=== PATIENT | male | born 1975 | race Two or more races ===

== ENCOUNTER 2025-06-19 10:52 | Emergency (ER) | payer SELFPAY ==
[~2025-06-19] VITALS: Ht 157.5 cm; Wt 77.5 kg
[2025-06-19 11:02] VITALS: TEMP 97.8
--- NOTE | 2025-06-19 11:58 | Physician Documentation ---
History of Present Illness ~ Chief Complaint: Medical Clearance Stated Complaint: MED CLEARANCE Time Seen by MD: 11:05 HPI Patient is seen today brought in by law enforcement with complaints of a dog bite to his right bicep and upper arm. They state this happened just prior to arrival. Patient has no other concern or complaint at this time. Tetanus Within 5 Years: No Medication Reconciliation Allergies: Coded Allergies: No Known Allergies (Unverified , 06/19/25) Review of Systems Constitutional: Denies: chills, fever, weakness Eyes: Denies: pain, blurred vision ENT: Denies: ear pain, nose pain, throat pain, mouth pain Respiratory: Denies: cough, shortness of breath Cardiovascular: Denies: chest pain, palpitations Gastrointestinal: Denies: abdominal pain, nausea, vomiting Genitourinary: Denies: burning, dysuria Male Genitalia: Denies: penile discharge, testicular pain Neurological: Denies: headache, dizziness Musculoskeletal: Denies: pain, swelling Integumentary: Denies: rash, lesions Allergic/Immunologic: Denies: hives, itching Hematologic/Lymphatic: Denies: no symptoms reported Psychiatric: Denies: depression, anxiety Physical Exam Vital Signs: Temperature: 97.8, Source: Temporal, Heart Rate: 121, Respiratory Rate: 18, BP: 142/100, Pulse Oximetry: 99, Weight: 77.500 Physical Exam General: Awake and Alert, no acute distress. HEENT: Conjunctiva pink, Sclera clear, Mucus Membranes moist. Neck: Supple without masses and tenderness. Resp: Unlabored. Lungs clear to auscultation bilaterally. Heart: Regular Rate and rhythm, normal S1 and S2 without murmur, rub or gallop. Abdomen: Soft and non tender no organomegaly Extremities: No cyanosis,clubbing or edema. Skin: Patient on exam has bruising of the right biceps and superficial abrasions with one small puncture wound measuring approximately 1 cm in length. The puncture wound is actively bleeding. Procedures Laceration/Wound Repair Laceration : Procedure Note Procedure note: 15 cc of 1% lidocaine with epinephrine was used to achieve local anesthesia of the 1 cm laceration of the right upper arm. Patient tolerated well. Wound was irrigated with copious amounts of normal saline and iodine. One staple was used to achieve closure loosely of the 1 cm laceration. Progress Results/Orders Results/Orders Completed Orders - SARITA LEA PAC Lidocaine 1% W/Epi 1:100,000 (Xylocaine (06/19/25 11:06) Medications Received in ER Medications (Trade) Dose Ordered Sig/Ace Route PRN Reason Start Time Stop Time Status Last Admin Dose Admin (Xylocaine 1%-EPI 1:100,000) 20 ml ONCE STAT SQ 06/19/25 11:06 06/19/25 11:08 DC 06/19/25 12:06 20 ML Vital Signs 06/19/25 06/19/25 11:02 12:07 Temp 97.8 Pulse 121 112 Resp 18 20 B/P (MAP) 142/100 144/100 (115) Pulse Ox 99 99 O2 Flow Rate 0 Medical Decision Making Findings Patient is seen today brought in by law enforcement with complaints of a dog bite to his right bicep and upper arm. They state this happened just prior to arrival. Patient has no other concern or complaint at this time. Patient did have laceration cleaned and irrigated and one staple put in place for loose closure. Patient will be started on Augmentin prophylactically 875/125 mg one tab twice a day for seven days. Patient will need staple removed in 7-10 days. Patient will return to ED with any worsening, concerning or changing symptoms. Departure Disposition: 01 HOME / SELF CARE / HOMELESS Impression: Primary Impression: Dog bite Qualified Codes: W54.0XXA - Bitten by dog, initial encounter Additional Impressions: Abrasion Superficial bruising Laceration Condition: Stable Discharge Instructions: Laceration Care, Adult, [id number] Additional Instructions: Patient did have laceration cleaned and irrigated and one staple put in place for loose closure. Patient will be started on Augmentin prophylactically 875/125 mg one tab twice a day for seven days. Patient was given one dose of Augmentin in the ED today and will need another dose tonight before bedtime. Patient will need staple removed in 7-10 days. Patient will return to ED with any worsening, concerning or changing symptoms. Referrals: NO PRIMARY CARE PROVIDER (PCP) Signature Scribe Signature: No scribe Attestation: No scribe SARITA LEA PAC Jun 19, 2025 11:58
[2025-06-19] MEDS: LIDOcaine 1% W/epiNEPHrine 1:100,000 20ml vial SQ STA (12:06)
[2025-06-19 12:34] VITALS: BP 131/95; PULSE 100; RESP 16; O2SAT 98
[2025-06-19] MEDS: amox tr/potassium clavulanate 875/125mg TAB PO STA (12:45)
== END 2025-06-19 12:56 ==
LOC: ER 10:54
DX: S41.111A Laceration without foreign body of right upper arm, initial encounter (principal); W54.0XXA Bitten by dog, initial encounter; Y93.89 Activity, other specified; Y92.89 Other specified places as the place of occurrence of the external cause; Y99.8 Other external cause status
CPT/HCPCS: 12001; 99283; J3490; J7030; A4565; A6446; A6449